=== PATIENT | male | born 1995 | race Two or more races ===

== ENCOUNTER 2018-12-04 14:48 | Emergency (ER) | payer SELFPAY ==
[~2018-12-04] VITALS: Ht 172.7 cm; Wt 50.0 kg
[2018-12-04] MEDS ORDERED: IBUPROFEN 600MG TABLET PO STA (16:58)
[2018-12-04] MEDS ORDERED: IBUPROFEN 600MG TABLET PO NR (17:45)
[2018-12-04 17:56] VITALS: BP 149/96
== END 2018-12-04 18:04 | disposition home or self-care (01) ==
LOC: ER 14:48
DX: J02.9 Acute pharyngitis, unspecified (principal)
CPT/HCPCS: 87070; 87430; 99283